=== PATIENT | male | born 1955 | race Caucasian/White ===

== ENCOUNTER 2020-08-14 12:46 | Emergency (ER) | payer MEDICARE, OTHER ==
[~2020-08-14] VITALS: Ht 170.2 cm; Wt 108.9 kg
[2020-08-14] MEDS ORDERED: CLOBET30L TOP (13:39)
== END 2020-08-14 13:51 | disposition home or self-care (01) ==
LOC: ER 12:46
DX: B35.3 Tinea pedis (principal); I10 Essential (primary) hypertension; E11.9 Type 2 diabetes mellitus without complications; F17.210 Nicotine dependence, cigarettes, uncomplicated
CPT/HCPCS: 99282

== ENCOUNTER 2020-08-26 19:31 | Inpatient (IN) | payer MEDICARE, OTHER ==
[~2020-08-26] VITALS: Ht 167.6 cm; Wt 92.6 kg
[~2020-08-26 19:31] MED LIST: CLOBET30L TOP
[2020-08-26 20:11] LABS: BASOPHILS PERCENT AUTO 1 % (0-2); EOSINOPHILS ABSOLUTE AUTO 0.28 K/mm3 (0.00-0.68); EOSINOPHILS PERCENT AUTO 2 % (0-6); Hematocrit 31.2 % (37.0-53.0); Hemoglobin 10.1 g/dL (13.5-17.5); IMMATURE GRAN ABSOLUTE AUTO 0.18 K/mm3 (0.00-0.10); IMMATURE GRAN PERCENT AUTO 1 % (0-1); LYMPHOCYTES ABSOLUTE AUTO 2.92 K/mm3 (0.84-5.20); LYMPHOCYTES PERCENT AUTO 17 % (21-46); MONOCYTES PERCENT AUTO 11 % (4-13); Mean Corpuscular HGB Conc 32.4 g/dL (31.5-36.5); Mean Corpuscular Volume 80 fL (80-100); Mean Platelet Volume 9.9 fL (9.1-12.4); NEUTROPHILS ABSOLUTE AUTO 11.48 K/mm3 (1.96-9.15); NEUTROPHILS PERCENT AUTO 68 % (41-73); Platelet Count 285 K/mm3 (150-400); RDW Coefficient Variation 15.9 % (11.7-14.2); RDW Standard Deviation 46.7 fL (35.1-46.3); Red Blood Cell Count 3.88 M/mm3 (4.30-5.90); White Blood Cell Count 16.86 K/mm3 (4.00-11.30)
[2020-08-26 20:30] LABS: Base Excess Venous -1.1 mmol/L; Bicarbonate Venous 23.6 mmol/L (24.0-30.0); PCO2 Venous 35.5 mmHg (38-42); PO2 Venous 66.1 mmHg (38-42); pH Blood Venous 7.43 (7.34-7.37)
[2020-08-26 20:31] LABS: Alanine Aminotransfer (ALT/SGP 18 U/L (12-78); Albumin, Blood 2.7 g/dL (3.4-5.0); Albumin/Globulin Ratio 0.5 (0.8-1.8); Alk Phos 88 U/L (50-136); Anion Gap 6 mmol/L (6-16); Aspartate Aminotrans (AST/SGOT 9 U/L (12-37); Bilirubin, Total 0.3 mg/dL (0.1-1.0); Blood Urea Nitrogen 28 mg/dL (8-24); CO2, Blood 23 mmol/L (21-32); Calcium, Blood 8.6 mg/dL (8.5-10.1); Chloride, Blood 105 mmol/L (98-108); Creatinine, Blood 1.12 mg/dL (0.60-1.20); Ethanol (Alcohol), Blood, Med <3 mg/dL; Globulin, Blood 5.6 g/dL (2.2-4.0); Glomerular Filtration Rate >60 (60-); Glucose, Blood 165 mg/dL (70-99); Potassium, Blood 3.8 mmol/L (3.5-5.5); Sodium, Blood 134 mmol/L (136-145); Total Protein, Blood 8.3 g/dL (6.4-8.2); Troponin I 0.072 ng/mL (0.000-0.040)
[2020-08-26 22:04] LABS: U Amphetamine Screen Not Detected; U Barbituate Screen Not Detected; U Benzodiazapine Screen Not Detected; U Buprenorphine Screen Not Detected; U Cannabinoids Screen Not Detected; U Cocaine Screen Not Detected; U Methadone Screen Not Detected; U Methamphetamine Screen Not Detected; U Opiates Screen Not Detected; U Oxycodone Screen Not Detected; U Phencyclidine Screen Not Detected; U Propoxyphene Screen Not Detected
[2020-08-26 22:06] LABS: SARS-Cov-2 (COVID-19) PCR, MMC NEGATIVE (NEGATIVE)
[2020-08-27] MEDS ORDERED: METF500 PO (00:28)
[2020-08-27] MEDS ORDERED: LISI5 PO (00:31)
[2020-08-27 03:37] LABS: BASOPHILS ABSOLUTE AUTO 0.07 K/mm3 (0.00-0.23); BASOPHILS PERCENT AUTO 1 % (0-2); EOSINOPHILS ABSOLUTE AUTO 0.25 K/mm3 (0.00-0.68); EOSINOPHILS PERCENT AUTO 2 % (0-6); Hematocrit 28.7 % (37.0-53.0); Hemoglobin 9.4 g/dL (13.5-17.5); IMMATURE GRAN ABSOLUTE AUTO 0.12 K/mm3 (0.00-0.10); IMMATURE GRAN PERCENT AUTO 1 % (0-1); LYMPHOCYTES ABSOLUTE AUTO 2.55 K/mm3 (0.84-5.20); LYMPHOCYTES PERCENT AUTO 21 % (21-46); MONOCYTES ABSOLUTE AUTO 1.61 K/mm3 (0.16-1.47); MONOCYTES PERCENT AUTO 13 % (4-13); Mean Corpuscular HGB 25.7 pg (26.0-34.0); Mean Corpuscular HGB Conc 32.8 g/dL (31.5-36.5); Mean Corpuscular Volume 78 fL (80-100); Mean Platelet Volume 9.7 fL (9.1-12.4); NEUTROPHILS ABSOLUTE AUTO 7.75 K/mm3 (1.96-9.15); NEUTROPHILS PERCENT AUTO 63 % (41-73); Platelet Count 244 K/mm3 (150-400); RDW Coefficient Variation 15.8 % (11.7-14.2); RDW Standard Deviation 45.5 fL (35.1-46.3); Red Blood Cell Count 3.66 M/mm3 (4.30-5.90); White Blood Cell Count 12.35 K/mm3 (4.00-11.30)
[2020-08-27 03:59] LABS: Anion Gap 4 mmol/L (6-16); Blood Urea Nitrogen 27 mg/dL (8-24); Bun/Creatinine Ratio 24.5 (12.0-20.0); CO2, Blood 25 mmol/L (21-32); Calcium, Blood 8.4 mg/dL (8.5-10.1); Chloride, Blood 106 mmol/L (98-108); Glomerular Filtration Rate >60 (60-); Glucose, Blood 136 mg/dL (70-99); Potassium, Blood 3.6 mmol/L (3.5-5.5); Sodium, Blood 135 mmol/L (136-145)
--- NOTE | 2020-08-27 04:20 | NUR ---
CRITICAL LAB VALUE RN RECEIVED CALL AT 0418 OF CRITICAL TROPONIN, [phone] FROM [facility] IN LAB. RN NOTIFIED CHARGE NURSE. AT THIS TIME, PT IS SLEEPING AND HAS NO C/O CHEST PAIN.
--- NOTE | 2020-08-27 06:18 | NUR ---
PATIENT ARRIVED FROM ED AT 0015 TODAY 08/27/20. PATIENT IS ALERT AND ORIENTED X3. PATIENT'S BP WAS ELEVATED WELL RESPIRATIONS BUT OTHER VITALS ARE WNL ON RA. HE DENIED ANY KIND OF CHEST PAIN AT THIS TIME. CALL LIGHT WITHIN REACH. PATIENT IS VOIDING AND IS ALLOWED TO HAVE FULL LIQUIDS PO. HE IS CURRENTLY LAYING IN BED. THE PLAN IS TO HAVE AN ECHO THIS SHIFT.
--- NOTE | 2020-08-27 14:51 | NUR ---
echocardiogram complete
[2020-08-27 15:15] LABS: Percent Saturation 7.8 % (20.0-50.0)
[2020-08-27 15:34] LABS: Thyroid Stimulating Hormone 1.43 uIU/mL (0.360-4.800)
--- NOTE | 2020-08-27 17:53 | NUR ---
SHIFT SUMMARY; ASSUMED CARE AT 0700, REPORT FROM GORGE WASHBURN. A/Soren/OX4 DURING SHIFT. 02 DECREASED TO 4L. MAINTAINING SATS OF 94%. REPOSITIONS SELF IN BED AND USES URINAL AT BEDSIDE. 1500MLFLUID RESTRICTION PLACED TODAY BY PROVIDER. NO ACUTE CHANGES DURING SHIFT. WILL CONTINUE TO MONITOR.
[2020-08-28 04:16] LABS: BASOPHILS ABSOLUTE AUTO 0.08 K/mm3 (0.00-0.23); BASOPHILS PERCENT AUTO 1 % (0-2); EOSINOPHILS ABSOLUTE AUTO 0.53 K/mm3 (0.00-0.68); EOSINOPHILS PERCENT AUTO 5 % (0-6); Hematocrit 31.4 % (37.0-53.0); IMMATURE GRAN ABSOLUTE AUTO 0.08 K/mm3 (0.00-0.10); IMMATURE GRAN PERCENT AUTO 1 % (0-1); LYMPHOCYTES ABSOLUTE AUTO 2.64 K/mm3 (0.84-5.20); LYMPHOCYTES PERCENT AUTO 25 % (21-46); MONOCYTES ABSOLUTE AUTO 1.49 K/mm3 (0.16-1.47); MONOCYTES PERCENT AUTO 14 % (4-13); Mean Corpuscular HGB 25.4 pg (26.0-34.0); Mean Corpuscular HGB Conc 31.8 g/dL (31.5-36.5); Mean Corpuscular Volume 80 fL (80-100); Mean Platelet Volume 9.7 fL (9.1-12.4); NEUTROPHILS ABSOLUTE AUTO 5.74 K/mm3 (1.96-9.15); NEUTROPHILS PERCENT AUTO 54 % (41-73); Platelet Count 236 K/mm3 (150-400); RDW Coefficient Variation 15.4 % (11.7-14.2); RDW Standard Deviation 44.9 fL (35.1-46.3); Red Blood Cell Count 3.94 M/mm3 (4.30-5.90); White Blood Cell Count 10.56 K/mm3 (4.00-11.30)
[2020-08-28 04:31] LABS: Albumin, Blood 2.4 g/dL (3.4-5.0); Anion Gap 6 mmol/L (6-16); Blood Urea Nitrogen 25 mg/dL (8-24); Bun/Creatinine Ratio 21.4 (12.0-20.0); CO2, Blood 25 mmol/L (21-32); Calcium, Blood 8.5 mg/dL (8.5-10.1); Chloride, Blood 107 mmol/L (98-108); Creatinine, Blood 1.17 mg/dL (0.60-1.20); Glomerular Filtration Rate >60 (60-); Glucose, Blood 114 mg/dL (70-99); Phosphorus, Blood 3.1 mg/dL (2.5-4.9); Potassium, Blood 3.8 mmol/L (3.5-5.5); Sodium, Blood 138 mmol/L (136-145)
--- NOTE | 2020-08-28 05:28 | NUR ---
SHIFT SUMMARY PT SLEPT WELL, ABLE TO MAINTAIN OXYGEN SATURATIONS ABOVE 92% ON 4LPM. TELEMETRY MONITORED PT AT SINUS, 78. NO ACUTE CHANGES. WILL CONTINUE TO MONITOR.
--- NOTE | 2020-08-28 19:20 | NUR ---
SHIFT SUMMARY: PT CONTINUES A&OX4 T/OUT DAY, O2 FLOW TITRATED TO 3 L/MIN AND MAINTAINING O2 SATS >92%, SINUS RHYTHM ON MONITOR. PT DENIED SOB, CHEST PAIN TODAY AND CONTINUED AFEBRILE. FLUID RESTRICTION MAINTAINED PER ORDERS. PT ADMISSION STATUS CHANGED TO MEDICAL. REPORT GIVEN TO GORGE ROSS.
[2020-08-29 00:38] LABS: Vancomycin, Trough 18.1 ug/mL (5.0-10.0)
[2020-08-29 03:56] LABS: BASOPHILS ABSOLUTE AUTO 0.09 K/mm3 (0.00-0.23); BASOPHILS PERCENT AUTO 1 % (0-2); EOSINOPHILS ABSOLUTE AUTO 0.63 K/mm3 (0.00-0.68); EOSINOPHILS PERCENT AUTO 5 % (0-6); Hematocrit 31.6 % (37.0-53.0); Hemoglobin 10.3 g/dL (13.5-17.5); IMMATURE GRAN PERCENT AUTO 1 % (0-1); LYMPHOCYTES ABSOLUTE AUTO 2.63 K/mm3 (0.84-5.20); LYMPHOCYTES PERCENT AUTO 20 % (21-46); MONOCYTES ABSOLUTE AUTO 1.57 K/mm3 (0.16-1.47); MONOCYTES PERCENT AUTO 12 % (4-13); Mean Corpuscular HGB 25.6 pg (26.0-34.0); Mean Corpuscular HGB Conc 32.6 g/dL (31.5-36.5); Mean Corpuscular Volume 79 fL (80-100); Mean Platelet Volume 9.7 fL (9.1-12.4); NEUTROPHILS ABSOLUTE AUTO 8.16 K/mm3 (1.96-9.15); NEUTROPHILS PERCENT AUTO 62 % (41-73); Platelet Count 253 K/mm3 (150-400); RDW Coefficient Variation 15.3 % (11.7-14.2); Red Blood Cell Count 4.02 M/mm3 (4.30-5.90); White Blood Cell Count 13.18 K/mm3 (4.00-11.30)
[2020-08-29 04:14] LABS: Anion Gap 7 mmol/L (6-16); Blood Urea Nitrogen 25 mg/dL (8-24); Bun/Creatinine Ratio 21.7 (12.0-20.0); CO2, Blood 24 mmol/L (21-32); Calcium, Blood 8.4 mg/dL (8.5-10.1); Chloride, Blood 105 mmol/L (98-108); Creatinine, Blood 1.15 mg/dL (0.60-1.20); Glomerular Filtration Rate >60 (60-); Glucose, Blood 132 mg/dL (70-99); Potassium, Blood 3.8 mmol/L (3.5-5.5); Sodium, Blood 136 mmol/L (136-145)
--- NOTE | 2020-08-29 05:39 | NUR ---
SHIFT SUMMARY PT RESTED WELL THROUGH THE NIGHT. ALERT AND ORIENTED, ABLE TO MAKE NEEDS KNOWN. COOPERATIVE WITH PLAN OF CARE. SATS >90% ON 3LNC. TELE NSR. BP ELEVATED X1 - HYDRALAZINE GIVEN WITH IMPROVEMENTS TO BP. VOIDING TO URINAL. NO BM. VSS. PAIN IN FEET - MEDICATED X2. VSS. CALL LIGHT WITHIN REACH, BED IN LOWEST POSITINO. WILL CONTINUE TO MONITOR.
--- NOTE | 2020-08-29 15:13 | NUR ---
PT TRANSFER: NO ACUTE CHANGES TODAY. PT CONTINUES A&OX4, O2 FLOW TITRATED TO 2 L/MIN AND MAINTAINING O2 SATS >92%, SR ON MONITOR. SHOWER COMPLETED TODAY. PT C/O NAUSEA AND MEDICATED PER EMAR, STATES IMPROVEMENT OF SYMPTOMS AFTER MEDICATION. PT RECEIVES NEW ROOM ASSIGNMENT, REPORT GIVEN TO SURY PENNINGTON. PT TO BE TRANSFERED SHORTLY.
--- NOTE | 2020-08-29 19:11 | NUR ---
SHIFT SUMMARY ISAK ARRIVED FROM PCU AROUND 3:30PM FROM PCU. GOT OXY AND TYLENOL FOR PAIN. GOT INSULIN FOR CBG. MAINTAINED 1.5L FR. WEANED TO RA. USES URINAL IN BED. CALL LIGHT IN [facility]
[2020-08-30 00:32] LABS: BASOPHILS ABSOLUTE AUTO 0.06 K/mm3 (0.00-0.23); BASOPHILS PERCENT AUTO 1 % (0-2); EOSINOPHILS ABSOLUTE AUTO 0.39 K/mm3 (0.00-0.68); EOSINOPHILS PERCENT AUTO 5 % (0-6); Hematocrit 29.2 % (37.0-53.0); Hemoglobin 9.6 g/dL (13.5-17.5); IMMATURE GRAN ABSOLUTE AUTO 0.05 K/mm3 (0.00-0.10); IMMATURE GRAN PERCENT AUTO 1 % (0-1); LYMPHOCYTES ABSOLUTE AUTO 2.16 K/mm3 (0.84-5.20); LYMPHOCYTES PERCENT AUTO 25 % (21-46); MONOCYTES ABSOLUTE AUTO 1.51 K/mm3 (0.16-1.47); MONOCYTES PERCENT AUTO 18 % (4-13); Mean Corpuscular HGB 26.1 pg (26.0-34.0); Mean Corpuscular HGB Conc 32.9 g/dL (31.5-36.5); Mean Corpuscular Volume 79 fL (80-100); Mean Platelet Volume 9.4 fL (9.1-12.4); NEUTROPHILS ABSOLUTE AUTO 4.48 K/mm3 (1.96-9.15); NEUTROPHILS PERCENT AUTO 52 % (41-73); Platelet Count 207 K/mm3 (150-400); RDW Coefficient Variation 15.3 % (11.7-14.2); RDW Standard Deviation 44.5 fL (35.1-46.3); Red Blood Cell Count 3.68 M/mm3 (4.30-5.90); White Blood Cell Count 8.65 K/mm3 (4.00-11.30)
[2020-08-30 00:50] LABS: Anion Gap 5 mmol/L (6-16); Blood Urea Nitrogen 29 mg/dL (8-24); Bun/Creatinine Ratio 23.4 (12.0-20.0); CO2, Blood 26 mmol/L (21-32); Calcium, Blood 8.1 mg/dL (8.5-10.1); Chloride, Blood 104 mmol/L (98-108); Creatinine, Blood 1.24 mg/dL (0.60-1.20); Glomerular Filtration Rate >60 (60-); Glucose, Blood 128 mg/dL (70-99); Potassium, Blood 3.9 mmol/L (3.5-5.5); Sodium, Blood 135 mmol/L (136-145)
--- NOTE | 2020-08-30 01:16 | NUR ---
CRITICAL VALUE AT 0055 THIS NURSE WAS NOTIFIED OF CRITICAL VANCO TROUGH @26. INFORMED CHARGE NURSE [facility]. PHARMACY STATED TO HOLD SCHEDULE DOSE VANCO. RIVERA PT.
--- NOTE | 2020-08-30 05:17 | NUR ---
SHIFT SUMMARY AOX3. VSS. TELE NSR @63. SPO2 @91% ON RA. DENIES DYSPNEA. E/U RESPIRATIONS. LUNGS DIM IN BASES. REPORTS 3/10 PAIN IN RLE, MEDICATED 1X c TYLENOL & OXYCODONE FOR PAIN, STATED RELIEF & ABLE TO REST WELL T/O NIGHT. HAD CRITICAL VANCO TROUGH, BEING MANAGED BY PHARMACY. IV REPLACED. CALL LIGHT IN REACH. WCTM.
[2020-08-30] MEDS ORDERED: Aspir 8181 MG PO (12:41)
[2020-08-30] MEDS ORDERED: NYSTATIN15 GM TOP (12:41)
[2020-08-30] MEDS ORDERED: SULTRIDS PO (12:42)
[2020-08-30] MEDS ORDERED: B-121000 MC3 PO (12:42)
[2020-08-30] MEDS ORDERED: FERSU300 PO (12:43)
[2020-08-30] MEDS ORDERED: FURO20 PO (12:43)
[2020-08-30] MEDS ORDERED: ALBU90OI INH (12:43)
[2020-08-30] MEDS ORDERED: NITR.4SL SL (12:44)
[2020-08-30] MEDS ORDERED: METO25 PO (12:44)
[2020-08-30] MEDS ORDERED: PANT20 PO (12:45)
[2020-08-30] MEDS ORDERED: ACET325 PO (12:46)
[2020-08-30] MEDS ORDERED: LACT PO (12:46)
--- NOTE | 2020-08-30 14:56 | NUR ---
SUMMARY/DISCHARGE PT DISCHARGED TO [facility], FOLLOW UP WITH PCP AND CARDIOLOGY SCHEDULED, TRANSPORTATION ARRANGED BY CARE MANAGEMENT, PT TAKEN OUT SAFELY VIA WHEELCHAIR, PT VERBALIZED UNDERSTANDING OF DISCHARGE INSTRUCTIONS REGARDING MEDS AND FOLLOW UP
== END 2020-08-30 13:04 | disposition home or self-care (01) | DRG 871 ==
LOC: ER 19:31 → PCU 22:13 → ERHOLD 22:13 → PCU 08-27 00:15 → MEDS 08-29 15:31
PROVIDERS: Emergency Medicine; Internal Medicine; Nurse Practitioner Acute Care; Pharmacist; ADMIT Internal Medicine
DX: A41.02 Sepsis due to Methicillin resistant Staphylococcus aureus (principal); I50.31 Acute diastolic (congestive) heart failure; I21.A1 Myocardial infarction type 2; J96.01 Acute respiratory failure with hypoxia; J18.9 Pneumonia, unspecified organism; J44.0 Chronic obstructive pulmonary disease with (acute) lower respiratory infection; L03.116 Cellulitis of left lower limb; Z20.822 Contact with and (suspected) exposure to COVID-19; L30.9 Dermatitis, unspecified; D63.8 Anemia in other chronic diseases classified elsewhere; D51.9 Vitamin B12 deficiency anemia, unspecified; E11.9 Type 2 diabetes mellitus without complications; I11.0 Hypertensive heart disease with heart failure; B35.3 Tinea pedis; E66.9 Obesity, unspecified; G25.81 Restless legs syndrome; Z59.0 Homelessness; Z68.32 Body mass index [BMI] 32.0-32.9, adult; Z87.891 Personal history of nicotine dependence; Z98.890 Other specified postprocedural states; Z90.89 Acquired absence of other organs
CPT/HCPCS: 36415; 71045; 71260; 80048; 80053; 80069; 80202; 82607; 82728; 82746; 82803; 82947; 83540; 83550; 83605; 83735; 83880; 84145; 84443; 84484; 85025; 85379; 85730; 87040; 87070; 87077; 87186; 87205; 93005; 93010; 93306; 94667; 94760; 96372-59; 96374-59; 96375-59; 99285-25; A9270; C9113; G0480; J0360; J0692; J0696; J1644; J1815; J1940; J2405; J3370; J3420; J7030; J7050; Q9967; U0004

== ENCOUNTER 2020-10-13 23:40 | Emergency (ER) | payer MEDICARE, OTHER ==
[~2020-10-13] VITALS: Ht 165.1 cm; Wt 81.7 kg
[~2020-10-13 23:40] MED LIST changes: +ACET325 PO; +ALBU90OI INH; +Aspir 8181 MG PO; +B-121000 MC3 PO; +FERSU300 PO; +FURO20 PO; +LACT PO; +LISI5 PO; +METF500 PO; +METO25 PO; +NITR.4SL SL; +NYSTATIN15 GM TOP; +PANT20 PO; +SULTRIDS PO
[2020-10-14] MEDS ORDERED: Vibramycin100 MG PO (04:59)
== END 2020-10-14 05:27 | disposition home or self-care (01) ==
LOC: ER 23:40
DX: K13.0 Diseases of lips (principal); I10 Essential (primary) hypertension; E11.9 Type 2 diabetes mellitus without complications; Z79.82 Long term (current) use of aspirin; Z79.899 Other long term (current) drug therapy; Z87.891 Personal history of nicotine dependence
CPT/HCPCS: 10060; 99283-25; A9270; J0171

== ENCOUNTER 2025-01-31 12:43 | Emergency (ER) | payer MEDICARE, OTHER ==
[~2025-01-31] VITALS: Ht 167.6 cm; Wt 88.5 kg
[~2025-01-31 12:43] MED LIST changes: +Vibramycin100 MG PO
[2025-01-31 13:27] VITALS: BP 164/79
[2025-01-31] MEDS ORDERED: SITA50T2 PO (21:43)
[2025-01-31] MEDS ORDERED: ZESTRIL40 M1 PO (21:43)
[2025-01-31] MEDS ORDERED: FARXIGA5 MG PO (21:43)
[2025-01-31] MEDS ORDERED: Carvedilol12.5 MG PO (21:43)
[2025-01-31] MEDS ORDERED: ZYRTEC10 M2 PO (21:43)
[2025-01-31] MEDS ORDERED: ATOR40TA PO (21:43)
[2025-01-31] MEDS ORDERED: CLOP75 PO (21:43)
[2025-01-31] MEDS ORDERED: TRIA15CR3 TOP (21:43)
== END 2025-01-31 16:15 | disposition home or self-care (01) ==
LOC: ER 12:43
DX: E11.9 Type 2 diabetes mellitus without complications (principal); Z76.0 Encounter for issue of repeat prescription; Z87.891 Personal history of nicotine dependence; I10 Essential (primary) hypertension; Z79.82 Long term (current) use of aspirin; Z79.899 Other long term (current) drug therapy
CPT/HCPCS: 99281